=== PATIENT | male | born 1955 | race Caucasian/White ===

== ENCOUNTER 2020-11-03 08:47 | Outpatient (CLI) | payer OTHER, SELFPAY ==
--- NOTE | 2020-11-03 09:15 | FL_ITS ---
WS: [id number] Single CONTRAST UPPER GI EXAMINATION HISTORY: Z85.01 - Personal history of malignant neoplasm of esophagus COMPARISON: None available. FLUOROSCOPY TIME: 2.0 minutes. Patient is status post esophagectomy with pull-through. There is a focal moderate stenosis involving the esophagus at the T3 level. There is a small associat ed diverticula at the area of stenosis. Mild tethering and thickening at the stenotic region. The carlos nosis persists on all views and the 14 mm barium tablet became briefly hung up at this location. Ther e is unremarkable appearance to the pull-through. There is very mild thickening of the wall but no di screte mass or tumor. No obstruction. FL/FL upper GI series 41165 IMPRESSION: 1. Moderate stenosis involving the esophagus in the upper thorax with associat ed small diverticulum. 2. 14 mm barium tablet became lodged briefly at this location 3. There is mild tethering and soft tissue thickening but this may be all post surgical and postoperative scarring at the stenotic site. Evaluation by endosco py is recommended.
== END 2020-11-03 08:48 | disposition home or self-care (01) ==
PROVIDERS: Visit Provider Surgery
DX: Z85.01 Personal history of malignant neoplasm of esophagus (principal); K22.2 Esophageal obstruction
CPT/HCPCS: 74240

== ENCOUNTER → 2020-11-20 11:07 | Outpatient (BNVA) | payer OTHER, SELFPAY | PROVIDERS: Referring Provider Surgery; Visit Provider Surgery | DX: Z20.822 Contact with and (suspected) exposure to COVID-19 (principal) | CPT/HCPCS: 87635 ==

== ENCOUNTER 2020-11-25 06:59 | Day surgery (SDC) | payer OTHER, SELFPAY ==
[2020-11-23 10:11] VITALS: BMI 26.9
--- NOTE | 2020-11-25 07:20 | P.ANESASSM_ITS ---
Pre-Anesthetic Assessment Pre-Anesthetic Assessment: Height/Weight: Height 1.78 m Weight 85.275 kg Preop Diagnosis: hx esophageal cancer Proposed Procedure: Operation Date: 11/25/20 08:30 Proposed Procedures p EGD Dilation W/ Balloon 37327 z98.890(Not Applicable) - Arpan Wahl MD Familial anesthetic complications: None Was Beta Jakob taken within 24 hours: Yes Last intake: NPO > 8 hrs Social: Social History: No alcohol and No tobacco Comment: occassional Exam: Pre-Anes Outpt Exam: alert, oriented x 3, clear to auscultation bilaterally and regular rate & rhythm Airway: Cervical ROM: WNL MP: 2 Dentition: Full CV/HEM: CV/HEM: Afib and HTN Comments: Cardiomyopathy, no other details, but able to achieve 4 METS without symptoms of chest pain or SOB. Says he had heart cath in [place] last month and was told his arteries look fine. Anesthetic Plan: ASA status: 3 Anesthesia: MAC Risk of > 500 ml blood loss (7ml/kg in children): No PFSH Anesthesia PFSH: Family History Other CAD (coronary artery disease) Cancer Hypertension Denies family history of Diabetes Stroke Social History Smoking and tobacco status: never smoked Alcohol intake: current Alcohol intake frequency: few times a week Lives independently: Yes Household members: spouse Data Anesthesia Cardiac Studies: No Data to Display
[2020-11-25 07:42] VITALS: BP 113/80; PULSE 84; RESP 18; TEMP 36.6; O2SAT 98
--- NOTE | 2020-11-25 07:48 | P.HP_ITS ---
Same Day Surgery H&P Indication for Procedure/HPI DATE OF PROCEDURE: November 25, 2020 CHIEF COMPLAINT/INDICATIONFOR SURGICAL PROCEDURE: Problem with swallowing PREOP DIAGNOSIS: Dysphagia PLANNED PROCEDRUE: Operation Date: 11/25/20 08:30 Proposed Procedures p EGD Dilation W/ Balloon [id number] z98.890(Not Applicable) - Arpan Wahl MD This is a pleasant 65 years old gentleman undergone history of esophagectomy and gastric pull-up back in 2008. Patient had previous stricture dilation and over the past couple of years he started to encounter worsening intermittent dysphagia and he is referred to me for potential intervention. No evidence of hematemesis. There is no current upper GI study Interim history 11/25/2020 Patient comes today for EGD with possible balloon dilation. Undergone upper GI study per my request that did show.1. Moderate stenosis involving the esophagus in the upper thorax with associated small diverticulum. 2. 14 mm barium tablet became lodged briefly at this location 3. There is mild tethering and soft tissue thickening but this may be all postsurgical and postoperative scarring at the stenotic site. Evaluation by endoscopy is recommended. ROS All systems have been reviewed negative except as per the above or per problem list Medications/Allergies* Home Medications Medication Instructions Recorded Confirmed Type apixaban 5 mg tablet 5 mg PO BID 10/12/20 11/23/20 History carvedilol 12.5 mg tablet 12.5 mg PO BID 10/12/20 11/23/20 History spironolactone 25 mg tablet 25 mg PO DAILY 10/12/20 11/23/20 History valsartan 40 mg tablet 40 mg PO BID 10/12/20 11/23/20 History Allergies/Adverse Reactions Allergy/AdvReac Type Severity Reaction Status Date / Time simvastatin [From Zocor] Allergy Intermediate dizziness Verified 11/25/20 07:49 Pertinent History/Comorbid Conditions* Family History (Updated 10/12/20 @ 09:01 by Rosaura Morrow) CAD (coronary artery disease) Cancer Hypertension Denies family history of Diabetes Stroke Social History Smoking and tobacco status: never smoked Alcohol intake: current Alcohol intake frequency: few times a week Lives independently: Yes Household members: spouse Pertinent Exam Findings alert, oriented x 3, clear to auscultation bilaterally, regular rate & rhythm and procedure specific exam findings (Abdominal examination nontender nondistended soft) Recommendations Surgery/Procedure today (EGD possible biopsy and possible balloon dilation.) Coding Level of Care Code Acute Car Sales Representative for Alexis Serrano
[2020-11-25] MEDS: sodium chloride 0.9% 1,000 ML 30 ML IV (08:10)
[2020-11-25 08:56] VITALS: BP 99/57; PULSE 76; RESP 16; TEMP 36.6; O2SAT 97
--- NOTE | 2020-11-25 09:01 | ANE.PACU2 ---
Inpatient post-anesthesia follow up: Airway intact: Yes Vital signs: Temperature 97.8 F Pulse Rate 76 Respiratory Rate 16 Blood Pressure 99/57 Pulse Oximetry 97 Oxygen Delivery Me thod Room Air Oxygen Flow Rate Fraction of Inspir ed Oxygen Hydration adequate: Yes Nausea and vomiting: No Pain level: 1 Mental status: Baseline
[2020-11-25 09:10] VITALS: BP 100/75; PULSE 89; RESP 18; O2SAT 92
== END 2020-11-25 09:20 | disposition home or self-care (01) ==
PROVIDERS: Visit Provider Surgery
DX: R13.10 Dysphagia, unspecified (principal); K29.70 Gastritis, unspecified, without bleeding; I48.91 Unspecified atrial fibrillation; I10 Essential (primary) hypertension; Z82.49 Family history of ischemic heart disease and other diseases of the circulatory system
CPT/HCPCS: 43249; 96360; J2405; J2704; J7030